=== PATIENT | female | born 1995 | race African-American/Black ===

== ENCOUNTER 2023-11-12 00:22 | Inpatient (IN) ==
[2023-11-12] MEDS ORDERED: Lidocaine 1% VIAL 10 MG/ML 30 ML VIAL INJ PRN (00:48)
[2023-11-12] MEDS: Lactated Ringers 1000 ml BAG 1,000 ML IV ONE (00:55)
[2023-11-12] MEDS: Buffered Lidocaine 1% SYRIN 1 ml INTRADERM ONE (01:13)
[2023-11-12 01:14] LABS: ABS Lymphocytes 1.8 10^3/uL (1.0-4.8); ABS Neutrophils 8.6 10^3/uL (1.5-7.6); Eosinophil % 0.2 %; Hematocrit 38.8 % (35-45); Hemoglobin 13.2 g/dL (11.5-14.3); Lymphocyte % 16.1 %; Mean Corpuscular Hemoglobin 31.3 pg (27-33); Mean Corpuscular Hgb Conc 34.1 g/dL (31-36); Mean Corpuscular Volume 91.8 fL (80-97); Mean Platelet Volume 9.8 fL (7.5-11.2); Platelet Count 164 10^3/uL (150-450); Red Blood Count 4.22 10^6/uL (3.63-4.92); Red Cell Distribution Width 15.4 % (12-17); White Blood Count 11.4 10^3/uL (3.8-11.8)
[2023-11-12] MEDS: Ondansetron 4 mg VIAL 2 MG/ML 2 ml VIAL IV PRN (01:15)
[2023-11-12] MEDS: Lactated Ringers 1000 ml BAG 1,000 ML IV SCH ×2 (01:19→03:51)
[2023-11-12] MEDS: Lidocaine 1.5% EPI 1:200,000 30 ML SDV ONE (02:00)
[2023-11-12] MEDS: OBEPIDURAL (200 ML) 200 ML EPIDURAL ONE (02:08)
[2023-11-12] MEDS ORDERED: Phenylephrine 40 mcg/mL 10mL (400mcg) SYRINGE IV PUSH PRN (02:10)
[2023-11-12] MEDS ORDERED: Sodium Citrate/Citric Acid LIQ 15 ML UDC PO PRN (02:10)
[2023-11-12 03:08] LABS: Urine Appearance Clear; Urine Benzodiazepine Screen None Detected (None Detect); Urine Bilirubin Negative (Negative); Urine Blood Negative (Negative); Urine Color Light-Yellow; Urine Glucose Negative (Negative); Urine Ketones 1+ (Negative); Urine Nitrite Negative (Negative); Urine Opiates Screen Presumptive Positive (None Detect); Urine Protein Negative (Negative); Urine Specific Gravity 1.011 (1.002-1.030); Urine Urobilinogen Negative (Negative); Urine pH 7.5 (5.0-8.0)
[2023-11-12 03:18] LABS: Urine Cannabinoids Screen None Detected (None Detect)
[2023-11-12] MEDS: Oxytocin in LR 20,000 MILLI.UNIT/1,000 ML BAG IV SCH ×2 (03:45→12:24)
[2023-11-12] MEDS: OBEPIDURAL (200 ML) 200 ML EPIDURAL SCH (03:53)
[2023-11-12] MEDS: Phenylephrine 40 mcg/mL 10mL (400mcg) SYRINGE IV PUSH PRN (04:34)
[2023-11-12] MEDS: Methylergonovine 0.2 mg AMPULE 1 ml AMP ONE (09:40)
[2023-11-12] MEDS ORDERED: Lactated Ringers 1000 ml BAG 1,000 ML IV SCH (11:00)
[2023-11-12] MEDS: Witch Hazel PAD JAR TOPICAL PRN (11:28)
[2023-11-12] MEDS: Dibucaine 1% OINT 28.35 GM TUBE PR PRN (11:28)
[2023-11-12] MEDS: Metoclopramide 5 MG/ML VIAL (10 mg) IV PRN (11:59)
[2023-11-12] MEDS ORDERED: Measles, Mumps,Rubella VACC 0.5 ML/VIAL SUBCUT ONE (12:00)
[2023-11-12] MEDS ORDERED: Varicella Virus Vaccine Live 0.5 ML VIAL SUBCUT ONE (12:00)
[2023-11-12] MEDS: Famotidine IV 10 MG/ML 2 ml VIAL (20 mg) IV SLOW PU SCH (14:39)
[2023-11-12] MEDS: Docusate LIQ 100 MG/10 ML UDC PO SCH (21:40)
[2023-11-12] MEDS: Famotidine IV 10 MG/ML 2 ml VIAL (20 mg) ONE (21:41)
[2023-11-13 06:53] LABS: ABS Lymphocytes 1.9 10^3/uL (1.0-4.8); ABS Neutrophils 8.2 10^3/uL (1.5-7.6); Eosinophil % 0.3 %; Hematocrit 30.3 % (35-45); Hemoglobin 10.4 g/dL (11.5-14.3); Lymphocyte % 16.7 %; Mean Corpuscular Hemoglobin 31.5 pg (27-33); Mean Corpuscular Hgb Conc 34.4 g/dL (31-36); Mean Corpuscular Volume 91.6 fL (80-97); Mean Platelet Volume 9.9 fL (7.5-11.2); Platelet Count 124 10^3/uL (150-450); Red Blood Count 3.31 10^6/uL (3.63-4.92); Red Cell Distribution Width 15.3 % (12-17); White Blood Count 11.1 10^3/uL (3.8-11.8)
[2023-11-13 13:45] LABS: RPR Nonreactive (Nonreactive)
[2023-11-13] MEDS: Varicella Virus Vaccine Live 0.5 ML VIAL SUBCUT ONE (20:52)
[2023-11-13] MEDS: Measles, Mumps,Rubella VACC 0.5 ML/VIAL SUBCUT ONE (20:53)
[2023-11-13] MEDS: Lactated Ringers 1000 ml BAG 1,000 ML IV ONE (23:14)
[2023-11-13] MEDS: Methylergonovine 0.2 mg AMPULE 1 ml AMP IM ONE (23:15)
[2023-11-14 08:04] VITALS: BP 112/74
[2023-11-15 16:42] LABS: T.Pallidum TP-PA Negative (Negative)
== END 2023-11-14 16:17 | disposition home or self-care (01) | DRG 560 ==
LOC: MCHOBOUT 00:22 → MCHOB 01:00
PROVIDERS: ATTEND Midwife